=== PATIENT | male | born 1960 | race Caucasian/White ===

== ENCOUNTER 2017-02-11 16:57 | Emergency (ER) | payer BC ==
[2017-02-11 17:38] LABS: ACETAMINOPHEN < 10 ug/mL (10-30)
[2017-02-11] MEDS ORDERED: Metoprolol Succinate 50 MG Tab.ER PO ONE (18:28)
[2017-02-11] MEDS ORDERED: Metoprolol Tartrate 50 MG Tab PO ONE (18:47)
[2017-02-11 20:19] VITALS: BP 154/97
--- NOTE | 2017-02-12 11:15 | CR ---
INDICATION: Intoxicated, symptoms for three days, ETOH. CHEST: PA and lateral views of the chest revealed the heart, mediastinum, and bony thorax to be unremarkable. Slightly flattened diaphragm leaves and prominent AP diameter raise question of COPD, and this should be correlated clinically. There are noted healed rib fractures on the right posterolaterally with some underlying pleural thickening, likely fibrotic in nature, bilaterally but more prominently on the right. A definite active infiltrate or effusion was not identified. IMPRESSION: 1. No acute process. 2. Possible COPD. MTDD
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
== END 2017-02-11 20:45 | disposition home or self-care (01) ==
LOC: FB.ED 16:57
DX: F10.229 Alcohol dependence with intoxication, unspecified (principal); Y90.1 Blood alcohol level of 20-39 mg/100 ml; I16.0 Hypertensive urgency
CPT/HCPCS: 36415; 71020; 80053; 80305; 81001; 84443; 84484; 85025; 93005; 99284; A9270; G0480

== ENCOUNTER 2017-02-13 11:29 | Emergency (ER) | payer BC ==
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
[2017-02-13] MEDS ORDERED: LORazepam 2 MG/ML MDV IVPUSH ONE (14:19)
[2017-02-13] MEDS ORDERED: Lactated Ringers 1,000 ML IV SCH (14:30)
[2017-02-13 15:00] VITALS: BP 156/100
== END 2017-02-13 15:10 ==
LOC: FB.ED 11:29 → UNDOADMOB 14:16 → FB.MS 14:16 → FB.ED 15:10
DX: F10.129 Alcohol abuse with intoxication, unspecified (principal)
CPT/HCPCS: 36415; 80048; 85027; 96361; 96374; 99284; G0480; J2060; J7120

== ENCOUNTER 2018-08-07 21:21 | Inpatient (IN) | payer BC ==
[2018-08-07] MEDS ORDERED: Haloperidol Lactate 5 MG/ML SDV ONE (21:28)
[2018-08-07] MEDS: Haloperidol Lactate 5 MG/ML SDV IM ONE ×2 (21:30→23:15)
[2018-08-07] MEDS ORDERED: LORazepam 2 MG/ML SDV IVPUSH ONE ×3 (21:55→22:56)
[2018-08-07] MEDS ORDERED: LORazepam 2 MG/ML SDV ONE (22:21)
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
[2018-08-07] MEDS ORDERED: Haloperidol Lactate 5 MG/ML SDV IM ONE (23:15)
[2018-08-08] MEDS ORDERED: Haloperidol Lactate 5 MG/ML SDV ONE (01:03)
[2018-08-08] MEDS ORDERED: Haloperidol Lactate 5 MG/ML SDV IV ONE (01:05)
[2018-08-08] MEDS: LORazepam 2 MG/ML SDV IVPUSH PRN ×4 (01:20→06:30)
[2018-08-08] MEDS ORDERED: Thiamine 100 MG in Sodium Chloride 0.9% 100 ML IV ONE (01:26)
[2018-08-08] MEDS ORDERED: Acetaminophen 650 MG Supp RECTAL PRN (01:29)
[2018-08-08] MEDS ORDERED: Midazolam 1 MG/ML 2 ML SDV IVPUSH SCH (07:30)
[2018-08-08] MEDS ORDERED: Midazolam 1 MG/ML 2 ML SDV IVPUSH PRN (07:42)
[2018-08-08] MEDS ORDERED: Sodium Chloride 0.9% 1,000 ML IV SCH (08:00)
[2018-08-08] MEDS ORDERED: Midazolam 1 MG/ML 2 ML SDV IVPUSH ONE (08:00)
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
[2018-08-08 09:05] VITALS: BP 136/50
--- NOTE | 2018-08-08 10:09 | DISCH ---
DISCHARGE DATE: 08/08/2018 REASON FOR ADMISSION: 1. Agitation. 2. Seizure disorder. TRANSFER DIAGNOSES: 1. Delirium tremens. 2. Acute kidney injury. 3. Rhabdomyolysis. 4. History of alcohol abuse. 5. History of a seizure disorder. BRIEF HISTORY AND HOSPITAL COURSE: A 58-year-old male who was admitted after being found unconscious and suspected to have had a seizure. He is known to have seizure disorder and also takes alcohol daily. Upon admission, he was agitated, combative, aggressive, and delirious. He needed large doses of benzodiazepines to control him. A decision was made to send him to [facility] for further evaluation, possibly a Neurology consultation. It is my understanding that he got thiamine, fluids, and I gave him 4 mg of Versed before transfer. I spent more than 30 minutes in the discharge and transfer of this patient. He was transferred by ambulance in stable condition. /[id number] SHAUN/GEORGIE
== END 2018-08-08 08:40 | DRG 53 ==
LOC: FB.ED 21:21 → FB.ICU 22:21
PROVIDERS: ADMIT Family Medicine; ATTEND Family Medicine
DX: G40.909 Epilepsy, unspecified, not intractable, without status epilepticus (principal); F10.231 Alcohol dependence with withdrawal delirium; M62.82 Rhabdomyolysis; N17.9 Acute kidney failure, unspecified; Y90.0 Blood alcohol level of less than 20 mg/100 ml; R45.1 Restlessness and agitation; I10 Essential (primary) hypertension; Z87.820 Personal history of traumatic brain injury; Z79.82 Long term (current) use of aspirin; Z78.1 Physical restraint status; E66.9 Obesity, unspecified; Z68.31 Body mass index [BMI] 31.0-31.9, adult
CPT/HCPCS: 36415; 51702; 51703; 80053; 80305-QW; 81001; 82550; 82803; 83605; 84484; 85025; 85610; 87040; 93005; A9270-GY; G0480; J1630; J2060; J2250; J3411; J7030; J7042

== ENCOUNTER 2019-06-19 17:21 | Emergency (ER) | payer BC, OTHER, SELFPAY ==
[2019-06-19] MEDS ORDERED: PHENobarbital Sodium 65 MG/ML SDV IVPUSH ONE ×2 (17:22→17:58)
[2019-06-19] MEDS ORDERED: Sodium Chloride 0.9% 1,000 ML IV ONE ×2 (17:22→17:33)
[2019-06-19] MEDS ORDERED: Thiamine 100 MG in Sodium Chloride 0.9% 100 ML IV ONE (17:29)
[2019-06-19] MEDS ORDERED: Sodium Chloride 0.9% 1,000 ML IV SCH (17:30)
[2019-06-19] MEDS ORDERED: LORazepam 2 MG/ML SDV IVPUSH ONE ×2 (17:48→17:56)
[2019-06-19] MEDS ORDERED: LORazepam 2 MG/ML SDV ONE ×2 (17:51→17:55)
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
[2019-06-19] MEDS ORDERED: levETIRAcetam 1,000 MG in Sodium Chloride 0.9% 100 ML IV ONE (18:12)
[2019-06-19] MEDS ORDERED: PHENobarbital Sodium 65 MG/ML SDV ONE (18:13)
[2019-06-19] MEDS ORDERED: levETIRAcetam 500 MG/5 ML SDV ONE (18:17)
[2019-06-19 19:32] VITALS: BP 150/75; PULSE 130
== END 2019-06-19 18:45 ==
LOC: FB.ED 17:21
DX: G40.919 Epilepsy, unspecified, intractable, without status epilepticus (principal); F10.10 Alcohol abuse, uncomplicated; I10 Essential (primary) hypertension; Z79.82 Long term (current) use of aspirin; Z79.899 Other long term (current) drug therapy
CPT/HCPCS: 36415; 80048; 83605; 85025; 87040; 93005; 96365; 96375; 99285; G0480; J1953; J2060; J2560; J3411; J7030; J7040

== ENCOUNTER 2019-06-23 15:03 | Emergency (ER) | payer BC ==
[2019-06-23] MEDS ORDERED: Alum Hydroxide/Mag Hydroxide 15 ML, Lidocaine 2% 15 ML PO ONE ×2 (16:14)
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
[2019-06-23 17:16] VITALS: BP 150/94; PULSE 71
== END 2019-06-23 17:15 | disposition home or self-care (01) ==
LOC: FB.ED 15:03
DX: G47.00 Insomnia, unspecified (principal); K29.70 Gastritis, unspecified, without bleeding; R82.5 Elevated urine levels of drugs, medicaments and biological substances; I10 Essential (primary) hypertension; Z79.82 Long term (current) use of aspirin; Z79.899 Other long term (current) drug therapy; Z91.018 Allergy to other foods; Z91.011 Allergy to milk products
CPT/HCPCS: 36415; 70450; 80048; 80177; 80305; 81001; 83735; 85025; 99284; A9270; G0480